=== PATIENT | female | born 1945 | race Caucasian/White ===

== ENCOUNTER 2021-11-10 08:24 | Outpatient (CLI) | payer MEDICARE | END 2021-11-10 08:25 | disposition home or self-care (01) | LOC: CT 08:24 | PROVIDERS: ATTEND Internal Medicine Gastroenterology | DX: K85.80 Other acute pancreatitis without necrosis or infection (principal); R10.13 Epigastric pain | CPT/HCPCS: 74177; 82565 ==

== ENCOUNTER 2021-11-18 09:18 | Inpatient (IN) | payer MEDICARE ==
[2021-11-18 11:02] VITALS: BMI 14.2
[2021-11-18] MEDS ORDERED: Ondansetron ODT 4 MG TAB PO PRN (12:00)
[2021-11-18] MEDS: Dextrose 5 % And 0.9 % NaCl 1,000 ML IV SCH (13:02)
[2021-11-18 13:08] LABS: Anion Gap 10 mmol/L (10-20); BUN (Urea Nitrogen) 8 mg/dL (9.8-20.1); Calc. Creatinine Clearance 40 mL/min (70-130); Carbon Dioxide 26 mmol/L (23-31); Chloride 106 mmol/L (98-107); Potassium 4.2 mmol/L (3.5-5.1); Sodium 138 mmol/L (136-145)
[2021-11-18 13:09] LABS: ALT (SGPT) 73 U/L (8-55); AST (SGOT) 71 U/L (5-34); Alkaline Phosphatase 455 U/L (40-110); Bilirubin, Total 1.2 mg/dL (0.2-1.2); Globulin 3.1 g/dL (2.4-3.5); Glucose 171 mg/dL (83-110); Protein, Total 6.1 g/dL (5.8-8.1)
[2021-11-18 13:39] LABS: #Basophils 0.1 thou/uL (0.0-0.2); #Eosinphils 0.1 thou/uL (0.0-0.7); #Lymphocytes 1.3 thou/uL (1.20-3.40); #Monocytes 0.3 thou/uL (0.11-0.59); #Neutrophils 2.8 thou/uL (1.40-6.50); %Basophils 1.9 % (0.0-1.0); %Eosinophils 2.7 % (0.0-10.0); %Lymphocytes 27.5 % (21.0-51.0); %Monocytes 6.5 % (0.0-10.0); %Neutrophils 61.4 % (42.0-75.0); Anisocytosis SLIGHT = 6-15 cells (100X) (0-5/hpf); Hemoglobin 8.2 g/dL (12.0-16.0); MDiff Complete? YES; Macrocytosis SLIGHT = 6-15 cells (100X) (0-5/hpf); Mean Corpuscular HGB CONC 30.8 g/dL (32.0-36.0); Mean Corpuscular Hemoglobin 34.2 pg (27.0-31.0); Mean Platelet Volume 7.1 fL (7.4-10.4); Ovalocytes SLIGHT = 2-5 cells (100X) (0-1/hpf); Platelet Count 434 thou/uL (130-400); Platelet Morphology Comment Appears Increased; Polychromasia SLIGHT = 2-3 cells (100X) (0-2/hpf); RBC Distribution Width 18.8 % (11.5-14.5); Red Blood Cell (RBC) Count 2.41 mill/uL (4.20-5.40); White Blood Cell (WBC) Count 4.5 thou/uL (4.8-10.8)
[2021-11-18 16:59] LABS: SARS-CoV-2 PCR by NAA Not Detected (NotDetected)
[2021-11-18] MEDS ORDERED: Promethazine 25 MG TAB PO PRN (17:23)
[2021-11-18] MEDS ORDERED: Pancrelipase DR 12,000 1 CAP PO SCH (17:30)
[2021-11-18] MEDS: traMADol HCl 50 MG TAB PO PRN ×2 (17:35→22:25)
[2021-11-18] MEDS: traZODone HCl 50 MG TAB PO SCH (20:08)
[2021-11-18] MEDS: DULoxetine 60 MG CAP PO SCH (20:08)
[2021-11-18] MEDS: Metoprolol Tartrate 25 MG TAB PO SCH (20:08)
[2021-11-18] MEDS: predniSONE 5 MG TAB PO SCH (20:08)
[2021-11-18] MEDS: Acetaminophen 325 MG TAB PO PRN (20:10)
[2021-11-18] MEDS: Ondansetron PF 4 MG/2 ML Vial IVP PRN (20:11)
[2021-11-18] MEDS: Temazepam 15 MG CAP PO PRN (22:26)
[2021-11-19] MEDS: Dextrose 5 % And 0.9 % NaCl 1,000 ML IV SCH ×2 (05:12→20:51)
[2021-11-19] MEDS: Levothyroxine Sodium 125 MCG TAB PO SCH (05:12)
[2021-11-19 07:17] LABS: Anion Gap 5 mmol/L (10-20); BUN (Urea Nitrogen) 7 mg/dL (9.8-20.1); Calc. Creatinine Clearance 40 mL/min (70-130); Calcium 8.1 mg/dL (7.8-10.44); Carbon Dioxide 28 mmol/L (23-31); Chloride 112 mmol/L (98-107); Glucose 101 mg/dL (83-110); Potassium 3.8 mmol/L (3.5-5.1); Sodium 141 mmol/L (136-145)
[2021-11-19 07:18] LABS: Hemoglobin 6.8 g/dL (12.0-16.0); Mean Corpuscular HGB CONC 31.5 g/dL (32.0-36.0); Mean Platelet Volume 6.4 fL (7.4-10.4); Platelet Count 282 thou/uL (130-400); RBC Distribution Width 18.8 % (11.5-14.5); Red Blood Cell (RBC) Count 1.95 mill/uL (4.20-5.40); White Blood Cell (WBC) Count 3.8 thou/uL (4.8-10.8)
[2021-11-19] MEDS ORDERED: Topiramate 100 MG TAB PO SCH (09:00)
[2021-11-19] MEDS: Metoprolol Tartrate 25 MG TAB PO SCH ×2 (09:06→20:50)
[2021-11-19] MEDS: Pancrelipase DR 12,000 1 CAP PO SCH ×3 (09:06→17:34)
[2021-11-19] MEDS: predniSONE 5 MG TAB PO SCH ×3 (09:06→20:53)
[2021-11-19] MEDS: Cholecalciferol 1,000 UNITS (25 MCG) TAB PO SCH (09:09)
[2021-11-19] MEDS ORDERED: Acetaminophen 325 MG TAB PO SCH (10:00)
[2021-11-19 10:01] LABS: Band 11 % (5-11); Eosinophils 4 % (0-10); Lymphocytes 58 % (21-51); MDiff Complete? YES; Macrocytosis SLIGHT = 6-15 cells (100X) (0-5/hpf); Monocytes 4 % (0-10); Myelocyte 1 % (0-0); Neutrophil 20 % (42-75); Platelet Morphology Comment Appears Adequate; Polychromasia SLIGHT = 2-3 cells (100X) (0-2/hpf)
[2021-11-19 14:41] LABS: Iron 146 ug/dL (50-170); Iron Binding Capacity, Total 145 mcg/dL (265-497)
[2021-11-19] MEDS ORDERED: GoLYTELY 4,000 ml Bottle PO SCH (16:00)
[2021-11-19 16:20] LABS: Ferritin 1563.08 ng/mL (10-291)
[2021-11-19] MEDS ORDERED: Thiamine 100 MG TAB PO SCH (16:30)
[2021-11-19 18:47] LABS: Free T4 (Free Thyroxine) 1.48 ng/dL (0.70-1.48); Thyroid Stimulating Hormone 0.0401 uIU/mL (0.35-4.94)
[2021-11-19] MEDS: Topiramate 100 MG TAB PO SCH (20:50)
[2021-11-19] MEDS: DULoxetine 60 MG CAP PO SCH (20:50)
[2021-11-19] MEDS: traZODone HCl 50 MG TAB PO SCH (22:53)
[2021-11-19] MEDS: Ondansetron PF 4 MG/2 ML Vial IVP PRN (23:00)
[2021-11-20] MEDS: Dextrose 5 % And 0.9 % NaCl 1,000 ML IV SCH (04:16)
[2021-11-20] MEDS: Metoprolol Tartrate 25 MG TAB PO SCH ×2 (06:16→20:30)
[2021-11-20] MEDS: Levothyroxine Sodium 125 MCG TAB PO SCH (06:16)
[2021-11-20] MEDS ORDERED: Fleet Enema 133 ML BOT PR SCH (07:00)
[2021-11-20] MEDS: Pancrelipase DR 12,000 1 CAP PO SCH ×4 (07:56→17:33)
[2021-11-20] MEDS: Thiamine 100 MG TAB PO SCH (07:57)
[2021-11-20] MEDS: predniSONE 5 MG TAB PO SCH ×2 (07:57→20:29)
[2021-11-20] MEDS: Cholecalciferol 1,000 UNITS (25 MCG) TAB PO SCH (07:57)
[2021-11-20 10:25] LABS: Anisocytosis SLIGHT = 6-15 cells (100X) (0-5/hpf); Band 23 % (5-11); Eosinophils 3 % (0-10); Hemoglobin 9.5 g/dL (12.0-16.0); Hypochromia SLIGHT = 6-15 cells (100X) (0-5/hpf); Lymphocytes 18 % (21-51); MDiff Complete? YES; Macrocytosis SLIGHT = 6-15 cells (100X) (0-5/hpf); Mean Corpuscular HGB CONC 31.9 g/dL (32.0-36.0); Mean Corpuscular Hemoglobin 33.6 pg (27.0-31.0); Mean Platelet Volume 6.6 fL (7.4-10.4); Metamyelocyte 1 % (0-0); Monocytes 5 % (0-10); Myelocyte 4 % (0-0); Neutrophil 35 % (42-75); Platelet Count 349 thou/uL (130-400); Platelet Morphology Comment Appears Adequate; Polychromasia SLIGHT = 2-3 cells (100X) (0-2/hpf); RBC Distribution Width 19.9 % (11.5-14.5); Reactive Lymphocytes 8 % (0-10); Red Blood Cell (RBC) Count 2.84 mill/uL (4.20-5.40); Stomatocytes SLIGHT = 2-5 cells (100X) (0-1/hpf); Tear Drops SLIGHT = 2-5 cells (100X) (0-1/hpf); White Blood Cell (WBC) Count 5.2 thou/uL (4.8-10.8)
[2021-11-20] MEDS ORDERED: Levothyroxine Sodium 50 MCG TAB PO SCH (11:15)
[2021-11-20] MEDS: traMADol HCl 50 MG TAB PO PRN ×2 (11:30→17:34)
[2021-11-20] MEDS ORDERED: PROPOFOL 200 MG/20 ML VIAL ONE (14:53)
[2021-11-20] MEDS: Topiramate 100 MG TAB PO SCH (20:29)
[2021-11-20] MEDS: DULoxetine 60 MG CAP PO SCH (20:29)
[2021-11-20] MEDS: traZODone HCl 50 MG TAB PO SCH (20:30)
[2021-11-21] MEDS: Dextrose 5 % And 0.9 % NaCl 1,000 ML IV SCH ×2 (02:55→13:56)
[2021-11-21] MEDS: Levothyroxine 175 MCG TAB PO SCH (06:22)
[2021-11-21] MEDS: Cholecalciferol 1,000 UNITS (25 MCG) TAB PO SCH (08:40)
[2021-11-21] MEDS: Pancrelipase DR 12,000 1 CAP PO SCH ×3 (08:40→16:40)
[2021-11-21] MEDS: Thiamine 100 MG TAB PO SCH (08:40)
[2021-11-21] MEDS: Metoprolol Tartrate 25 MG TAB PO SCH ×2 (08:41→21:41)
[2021-11-21] MEDS: predniSONE 5 MG TAB PO SCH ×2 (08:41→21:41)
[2021-11-21 10:37] LABS: ALT (SGPT) 48 U/L (8-55); AST (SGOT) 50 U/L (5-34); Albumin 2.2 g/dL (3.4-4.8); Alkaline Phosphatase 351 U/L (40-110); Anion Gap 7 mmol/L (10-20); BUN (Urea Nitrogen) 5 mg/dL (9.8-20.1); Bilirubin, Total 0.8 mg/dL (0.2-1.2); Calc. Creatinine Clearance 41 mL/min (70-130); Calcium 7.9 mg/dL (7.8-10.44); Carbon Dioxide 25 mmol/L (23-31); Chloride 111 mmol/L (98-107); Globulin 2.3 g/dL (2.4-3.5); Glucose 135 mg/dL (83-110); Lipase Less than 4 U/L (8-78); Potassium 3.6 mmol/L (3.5-5.1); Protein, Total 4.5 g/dL (5.8-8.1); Sodium 139 mmol/L (136-145)
[2021-11-21 11:12] LABS: Mean Corpuscular HGB CONC 31.5 g/dL (32.0-36.0); Mean Corpuscular Hemoglobin 33.7 pg (27.0-31.0); Red Blood Cell (RBC) Count 2.67 mill/uL (4.20-5.40)
[2021-11-21 11:18] LABS: Anisocytosis SLIGHT = 6-15 cells (100X) (0-5/hpf); Eosinophils 2 % (0-10); Lymphocytes 28 % (21-51); MDiff Complete? YES; Monocytes 6 % (0-10); Neutrophil 62 % (42-75); Platelet Morphology Comment PLT clumps seen-ADEQ; Polychromasia SLIGHT = 2-3 cells (100X) (0-2/hpf); White Blood Cell (WBC) Count 4.6 thou/uL (4.8-10.8)
[2021-11-21 16:33] LABS: HBSAB Concentration Less than 8.00 mIU/mL; HBSAg Index 0.25 S/CO (0-0.99); Hep B Surf AB Non-Reactive (NonReactive); Hep B Surf Ag Non-Reactive S/CO (NonReactive); Hep C IgG Ab Non-Reactive (NonReactive); Hep C Index 0.16 S/CO (0-0.79)
[2021-11-21] MEDS: Ondansetron PF 4 MG/2 ML Vial IVP PRN (18:07)
[2021-11-21] MEDS: DULoxetine 60 MG CAP PO SCH (21:40)
[2021-11-21] MEDS: traMADol HCl 50 MG TAB PO PRN (21:41)
[2021-11-21] MEDS: traZODone HCl 50 MG TAB PO SCH (21:41)
[2021-11-21] MEDS: Topiramate 100 MG TAB PO SCH (21:42)
[2021-11-22] MEDS: Dextrose 5 % And 0.9 % NaCl 1,000 ML IV SCH ×2 (05:31→23:47)
[2021-11-22] MEDS: Levothyroxine 175 MCG TAB PO SCH (05:31)
[2021-11-22] MEDS: Thiamine 100 MG TAB PO SCH (09:23)
[2021-11-22] MEDS: Cholecalciferol 1,000 UNITS (25 MCG) TAB PO SCH (09:23)
[2021-11-22] MEDS: Metoprolol Tartrate 25 MG TAB PO SCH ×2 (09:23→21:54)
[2021-11-22] MEDS: predniSONE 5 MG TAB PO SCH (09:23)
[2021-11-22] MEDS: Pancrelipase DR 12,000 1 CAP PO SCH ×3 (09:24→16:05)
[2021-11-22] MEDS: traMADol HCl 50 MG TAB PO PRN ×2 (16:07→21:52)
[2021-11-22] MEDS: Ondansetron PF 4 MG/2 ML Vial IVP PRN (18:26)
[2021-11-22] MEDS: DULoxetine 60 MG CAP PO SCH (21:54)
[2021-11-22] MEDS: Topiramate 100 MG TAB PO SCH (21:54)
[2021-11-22] MEDS: traZODone HCl 50 MG TAB PO SCH (21:54)
[2021-11-22] MEDS: Temazepam 15 MG CAP PO PRN (23:47)
[2021-11-23] MEDS: Levothyroxine 175 MCG TAB PO SCH (05:44)
[2021-11-23 06:47] LABS: ALT (SGPT) 51 U/L (8-55); AST (SGOT) 59 U/L (5-34); Albumin 2.3 g/dL (3.4-4.8); Alkaline Phosphatase 351 U/L (40-110); Anion Gap 8 mmol/L (10-20); BUN (Urea Nitrogen) 5 mg/dL (9.8-20.1); Bilirubin, Total 0.9 mg/dL (0.2-1.2); Calc. Creatinine Clearance 47 mL/min (70-130); Calcium 8.5 mg/dL (7.8-10.44); Carbon Dioxide 25 mmol/L (23-31); Chloride 110 mmol/L (98-107); Globulin 2.5 g/dL (2.4-3.5); Glucose 105 mg/dL (83-110); Potassium 3.7 mmol/L (3.5-5.1); Protein, Total 4.8 g/dL (5.8-8.1); Sodium 139 mmol/L (136-145)
[2021-11-23] MEDS: Pancrelipase DR 12,000 1 CAP PO SCH ×3 (08:27→17:02)
[2021-11-23] MEDS: Metoprolol Tartrate 25 MG TAB PO SCH ×2 (08:28→20:59)
[2021-11-23] MEDS: Cholecalciferol 1,000 UNITS (25 MCG) TAB PO SCH (08:28)
[2021-11-23] MEDS: Thiamine 100 MG TAB PO SCH (08:28)
[2021-11-23] MEDS: predniSONE 5 MG TAB PO SCH (08:28)
[2021-11-23] MEDS: Dextrose 5 % And 0.9 % NaCl 1,000 ML IV SCH ×2 (08:29→10:15)
[2021-11-23] MEDS: Ondansetron PF 4 MG/2 ML Vial IVP PRN (19:27)
[2021-11-23] MEDS: Topiramate 100 MG TAB PO SCH (20:59)
[2021-11-23] MEDS: traZODone HCl 50 MG TAB PO SCH (20:59)
[2021-11-23] MEDS: Temazepam 15 MG CAP PO PRN (20:59)
[2021-11-23] MEDS: DULoxetine 60 MG CAP PO SCH (20:59)
[2021-11-23] MEDS: traMADol HCl 50 MG TAB PO PRN (20:59)
[2021-11-23] MEDS ORDERED: Dicyclomine 20 MG TAB PO SCH (22:00)
[2021-11-24] MEDS: Ondansetron PF 4 MG/2 ML Vial IVP PRN ×2 (03:37→17:59)
[2021-11-24] MEDS: traMADol HCl 50 MG TAB PO PRN (03:37)
[2021-11-24] MEDS: Acetaminophen 325 MG TAB PO PRN (03:38)
[2021-11-24] MEDS: Dextrose 5 % And 0.9 % NaCl 1,000 ML IV SCH ×2 (03:42→23:56)
[2021-11-24] MEDS: Levothyroxine 175 MCG TAB PO SCH (05:52)
[2021-11-24] MEDS: Cholecalciferol 1,000 UNITS (25 MCG) TAB PO SCH (08:42)
[2021-11-24] MEDS: Pancrelipase DR 12,000 1 CAP PO SCH ×3 (08:42→17:56)
[2021-11-24] MEDS: Thiamine 100 MG TAB PO SCH (08:43)
[2021-11-24] MEDS: Multivit, Therapeutic 1 TAB PO SCH (08:43)
[2021-11-24] MEDS: Dicyclomine 20 MG TAB PO SCH ×4 (08:43→20:48)
[2021-11-24] MEDS: Metoprolol Tartrate 25 MG TAB PO SCH ×2 (08:43→20:48)
[2021-11-24] MEDS: predniSONE 5 MG TAB PO SCH (08:43)
[2021-11-24] MEDS ORDERED: Megestrol Acetate 40 MG TAB PO SCH (11:15)
[2021-11-24] MEDS: Megestrol Acetate 40 MG TAB PO SCH (20:48)
[2021-11-24] MEDS: traZODone HCl 50 MG TAB PO SCH (20:48)
[2021-11-24] MEDS: DULoxetine 60 MG CAP PO SCH (20:48)
[2021-11-24] MEDS: Topiramate 100 MG TAB PO SCH (20:48)
[2021-11-24 23:42] LABS: SARS-CoV-2 PCR by NAA Not Detected (NotDetected)
[2021-11-25] MEDS: Levothyroxine 175 MCG TAB PO SCH (05:26)
[2021-11-25] MEDS: traMADol HCl 50 MG TAB PO PRN (05:33)
[2021-11-25] MEDS: Acetaminophen 325 MG TAB PO PRN (05:33)
[2021-11-25 06:30] LABS: Hemoglobin 8.9 g/dL (12.0-16.0); Platelet Count 312 thou/uL (130-400)
[2021-11-25] MEDS ORDERED: Cosyntropin 250 MCG VIAL SLOW IVP SCH (08:30)
[2021-11-25] MEDS: Pancrelipase DR 12,000 1 CAP PO SCH ×2 (08:57→12:30)
[2021-11-25] MEDS: Cholecalciferol 1,000 UNITS (25 MCG) TAB PO SCH (08:58)
[2021-11-25] MEDS: predniSONE 5 MG TAB PO SCH (08:58)
[2021-11-25] MEDS: Multivit, Therapeutic 1 TAB PO SCH (08:58)
[2021-11-25] MEDS: Thiamine 100 MG TAB PO SCH (08:58)
[2021-11-25] MEDS: Dicyclomine 20 MG TAB PO SCH ×2 (08:59→12:30)
[2021-11-25] MEDS: Megestrol Acetate 40 MG TAB PO SCH (08:59)
[2021-11-25] MEDS: Metoprolol Tartrate 25 MG TAB PO SCH (08:59)
[2021-11-25 09:01] VITALS: BP 133/76; TEMP 98.2
[2021-11-25 12:25] LABS: EliA Vaculitis New Method **** NEW METHOD ****; Mitochondrial Ab 1.3 U/mL (<4 Negative)
[2021-11-26 23:37] LABS: Alkaline Phosphastase Total 431 IU/L (44-121); Bone 19 % (14-68); Intestinal 4 % (0-18); Liver 77 % (18-85)
== END 2021-11-25 14:30 | disposition home health service (06) | DRG 640 ==
LOC: T4-A 10:11
PROVIDERS: ADMIT Family Medicine; ATTEND Family Medicine
PROC: 30233N1 Transfusion of Nonautologous Red Blood Cells into Peripheral Vein, Percutaneous Approach (ICD-10-PCS; 2021-11-19)
PROC: 0DBA8ZX Excision of Jejunum, Via Natural or Artificial Opening Endoscopic, Diagnostic (ICD-10-PCS; 2021-11-20)
PROC: 0DBN8ZZ Excision of Sigmoid Colon, Via Natural or Artificial Opening Endoscopic (ICD-10-PCS; 2021-11-20)
PROC: 3E0G76Z Introduction of Nutritional Substance into Upper GI, Via Natural or Artificial Opening (ICD-10-PCS; principal; 2021-11-21)
DX: E43 Unspecified severe protein-calorie malnutrition (principal); K83.1 Obstruction of bile duct; Z20.822 Contact with and (suspected) exposure to COVID-19; Z68.1 Body mass index [BMI] 19.9 or less, adult; R64 Cachexia; K86.1 Other chronic pancreatitis; K86.89 Other specified diseases of pancreas; K63.5 Polyp of colon; K57.30 Diverticulosis of large intestine without perforation or abscess without bleeding; I10 Essential (primary) hypertension; E03.9 Hypothyroidism, unspecified; R29.6 Repeated falls; Z96.643 Presence of artificial hip joint, bilateral; R62.7 Adult failure to thrive; D53.9 Nutritional anemia, unspecified; Z90.49 Acquired absence of other specified parts of digestive tract; Z88.6 Allergy status to analgesic agent; Z88.5 Allergy status to narcotic agent; Z88.8 Allergy status to other drugs, medicaments and biological substances; Z79.899 Other long term (current) drug therapy; Z91.81 History of falling; Z90.710 Acquired absence of both cervix and uterus; Z98.890 Other specified postprocedural states; Z82.0 Family history of epilepsy and other diseases of the nervous system; Z90.410 Acquired total absence of pancreas
CPT/HCPCS: 36415; 36430; 70450; 72170; 74181; 80048; 80053; 81256; 82248; 82306; 82607; 82728; 82746; 82787; 82977; 83516; 83540; 83550; 83615; 83690; 84075; 84100; 84165; 84439; 84443; 84446; 84550; 84590; 85014; 85018; 85025; 85046; 85049; 85610; 86015; 86706; 86709; 86803; 86850; 86900; 86901; 87340; 88305; G0306; J2405; J2704; J7042; J7512; P9016; Q0162; Q0169; S0179; U0003; U0005

== ENCOUNTER 2021-12-09 19:55 | Emergency (ER) | payer MEDICARE ==
[2021-12-09 21:02] LABS: Hemoglobin 9.2 g/dL (12.0-16.0); Mean Corpuscular HGB CONC 32.1 g/dL (32.0-36.0); Mean Corpuscular Hemoglobin 34.4 pg (27.0-31.0); Mean Platelet Volume 6.1 fL (7.4-10.4); Platelet Count 476 thou/uL (130-400); RBC Distribution Width 17.9 % (11.5-14.5); Red Blood Cell (RBC) Count 2.68 mill/uL (4.20-5.40); White Blood Cell (WBC) Count 7.7 thou/uL (4.8-10.8)
[2021-12-09 21:19] LABS: ALT (SGPT) 34 U/L (8-55); AST (SGOT) 42 U/L (5-34); Albumin 2.6 g/dL (3.4-4.8); Alkaline Phosphatase 417 U/L (40-110); Anion Gap 10 mmol/L (10-20); BUN (Urea Nitrogen) 13 mg/dL (9.8-20.1); Bilirubin, Total 0.8 mg/dL (0.2-1.2); Calc. Creatinine Clearance 0 mL/min (70-130); Calcium 8.6 mg/dL (7.8-10.44); Carbon Dioxide 24 mmol/L (23-31); Chloride 104 mmol/L (98-107); Globulin 3.7 g/dL (2.4-3.5); Glucose 116 mg/dL (83-110); Potassium 3.8 mmol/L (3.5-5.1); Protein, Total 6.3 g/dL (5.8-8.1); Sodium 134 mmol/L (136-145)
[2021-12-09 21:23] LABS: Troponin I Less than 0.010 ng/mL (< 0.028)
[2021-12-09 21:38] LABS: Band 12 % (5-11); Eosinophils 1 % (0-10); Hypochromia SLIGHT = 6-15 cells (100X) (0-5/hpf); Lymphocytes 26 % (21-51); MDiff Complete? YES; Macrocytosis SLIGHT = 6-15 cells (100X) (0-5/hpf); Monocytes 12 % (0-10); Neutrophil 48 % (42-75); Platelet Morphology Comment Appears Increased; Reactive Lymphocytes 1 % (0-10)
[2021-12-09] MEDS ORDERED: cefTRIAXone\\ROCEPHIN 1 GM VIAL ONE (22:03)
[2021-12-09] MEDS ORDERED: Ketorolac Tromethamine 30 MG/ML VIAL ONE (22:18)
== END 2021-12-09 22:35 | disposition home or self-care (01) ==
LOC: ERS 19:55
DX: J18.9 Pneumonia, unspecified organism (principal); S22.42XD Multiple fractures of ribs, left side, subsequent encounter for fracture with routine healing; E03.9 Hypothyroidism, unspecified; Z79.899 Other long term (current) drug therapy
CPT/HCPCS: 36415; 71045; 80053; 83605; 84484; 85025; 87040; 93005; 96365; 96375; J0696; J1885

== ENCOUNTER 2022-01-14 10:13 | Day surgery (SDC) | payer MEDICARE ==
[2022-01-14] MEDS ORDERED: diphenhydrAMINE 25 MG CAP ONE (11:05)
[2022-01-14] MEDS ORDERED: Acetaminophen 500 MG TAB ONE (11:05)
[2022-01-14] MEDS ORDERED: Sodium Chloride 0.9% 1,000 ML IV SCH (11:30)
[2022-01-14 17:01] VITALS: BP 127/59; TEMP 98.8
== END 2022-01-14 17:01 | disposition home or self-care (01) ==
LOC: ONC/OP 10:13
PROVIDERS: ATTEND Internal Medicine Hematology & Oncology
PROC: 30233N1 Transfusion of Nonautologous Red Blood Cells into Peripheral Vein, Percutaneous Approach (ICD-10-PCS; principal; 2022-01-14)
DX: D64.9 Anemia, unspecified (principal); D69.6 Thrombocytopenia, unspecified; Z88.5 Allergy status to narcotic agent; Z88.6 Allergy status to analgesic agent; Z88.8 Allergy status to other drugs, medicaments and biological substances; D51.3 Other dietary vitamin B12 deficiency anemia; D72.818 Other decreased white blood cell count
CPT/HCPCS: 36415; 36430; 82607; 82728; 82746; 85025; 86850; 86900; 86901; 96360; P9016

== ENCOUNTER 2022-02-15 16:46 | Inpatient (IN) | payer MEDICARE ==
[2022-02-15 18:23] LABS: #Basophils 0.1 thou/uL (0.0-0.2); #Eosinphils 0.3 thou/uL (0.0-0.7); #Lymphocytes 2.2 thou/uL (1.20-3.40); #Monocytes 0.6 thou/uL (0.11-0.59); #Neutrophils 3.1 thou/uL (1.40-6.50); %Eosinophils 4.9 % (0.0-10.0); %Lymphocytes 35.1 % (21.0-51.0); %Monocytes 9.1 % (0.0-10.0); Hemoglobin 7.5 g/dL (12.0-16.0); Mean Corpuscular HGB CONC 32.2 g/dL (32.0-36.0); Mean Corpuscular Hemoglobin 33.6 pg (27.0-31.0); Mean Platelet Volume 7.2 fL (7.4-10.4); Platelet Count 453 thou/uL (130-400); RBC Distribution Width 19.2 % (11.5-14.5); Red Blood Cell (RBC) Count 2.23 mill/uL (4.20-5.40); White Blood Cell (WBC) Count 6.3 thou/uL (4.8-10.8)
[2022-02-15 18:39] LABS: Phosphorus 2.3 mg/dL (2.3-4.7)
[2022-02-15 18:42] LABS: ALT (SGPT) 91 U/L (8-55); AST (SGOT) 120 U/L (5-34); Albumin 2.4 g/dL (3.4-4.8); Alkaline Phosphatase 589 U/L (40-110); Anion Gap 9 mmol/L (10-20); BUN (Urea Nitrogen) 14 mg/dL (9.8-20.1); Bilirubin, Total 1.1 mg/dL (0.2-1.2); Calc. Creatinine Clearance 0 mL/min (70-130); Calcium 8.7 mg/dL (7.8-10.44); Carbon Dioxide 26 mmol/L (23-31); Chloride 103 mmol/L (98-107); Estimated GFR 72; Globulin 3.7 g/dL (2.4-3.5); Glucose 100 mg/dL (83-110); Magnesium 1.8 mg/dL (1.6-2.6); Protein, Total 6.1 g/dL (5.8-8.1); Sodium 134 mmol/L (136-145)
[2022-02-15] MEDS ORDERED: Ondansetron PF 4 MG/2 ML Vial IVP PRN (19:34)
[2022-02-15] MEDS ORDERED: Promethazine 25 MG TAB PO PRN (19:55)
[2022-02-15 20:41] VITALS: BMI 12.5
[2022-02-15] MEDS ORDERED: Magnesium 2 GM/50 ML(in water) 2 GM in Premix Bag 1 BAG IVPB SCH (21:00)
[2022-02-15] MEDS ORDERED: PHOS-NAK 1 PKT PACK PO SCH (21:00)
[2022-02-15] MEDS: traZODone HCl 50 MG TAB PO SCH (21:04)
[2022-02-15] MEDS: Lactated Ringer's 1,000 ML IV SCH (22:44)
[2022-02-16 01:13] LABS: SARS-CoV-2 NAA Rapid Test Not Detected (NotDetected)
[2022-02-16] MEDS ORDERED: Levothyroxine Sodium 125 MCG TAB PO SCH (06:00)
[2022-02-16 06:23] LABS: Band 5 % (5-11); Eosinophils 3 % (0-10); Hemoglobin 7.1 g/dL (12.0-16.0); Hypochromia SLIGHT = 6-15 cells (100X) (0-5/hpf); Lymphocytes 31 % (21-51); MDiff Complete? YES; Macrocytosis SLIGHT = 6-15 cells (100X) (0-5/hpf); Mean Corpuscular HGB CONC 32.6 g/dL (32.0-36.0); Mean Corpuscular Hemoglobin 34.2 pg (27.0-31.0); Mean Platelet Volume 7.2 fL (7.4-10.4); Monocytes 7 % (0-10); Neutrophil 54 % (42-75); Platelet Count 414 thou/uL (130-400); Platelet Morphology Comment Appears Increased; RBC Distribution Width 19.4 % (11.5-14.5); Red Blood Cell (RBC) Count 2.08 mill/uL (4.20-5.40); White Blood Cell (WBC) Count 5.2 thou/uL (4.8-10.8)
[2022-02-16 07:11] LABS: ALT (SGPT) 82 U/L (8-55); AST (SGOT) 103 U/L (5-34); Albumin 2.3 g/dL (3.4-4.8); Alkaline Phosphatase 519 U/L (40-110); Anion Gap 12 mmol/L (10-20); BUN (Urea Nitrogen) 13 mg/dL (9.8-20.1); Calc. Creatinine Clearance 32 mL/min (70-130); Calcium 8.5 mg/dL (7.8-10.44); Carbon Dioxide 24 mmol/L (23-31); Chloride 103 mmol/L (98-107); Estimated GFR 77; Globulin 3.3 g/dL (2.4-3.5); Glucose 87 mg/dL (83-110); Magnesium 2.3 mg/dL (1.6-2.6); Phosphorus 3.1 mg/dL (2.3-4.7); Potassium 3.7 mmol/L (3.5-5.1); Protein, Total 5.6 g/dL (5.8-8.1); Sodium 135 mmol/L (136-145)
[2022-02-16] MEDS: Levothyroxine 175 MCG TAB PO SCH (07:13)
[2022-02-16] MEDS: Pancrelipase DR 12,000 1 CAP PO SCH ×3 (08:04→17:43)
[2022-02-16] MEDS: Lactated Ringer's 1,000 ML IV SCH (10:54)
[2022-02-16] MEDS ORDERED: Sodium Chloride 0.9% 0 ML ONE (12:43)
[2022-02-16] MEDS ORDERED: CEFAZOLIN 1 GM VIAL ONE ×2 (12:43→13:36)
[2022-02-16] MEDS ORDERED: EPINEPHrine 1 MG/ML AMP ONE (13:27)
[2022-02-16] MEDS ORDERED: Bupivacaine PF 0.5% 30 ML VIAL ONE (13:27)
[2022-02-16] MEDS ORDERED: Sodium Chloride 0.9% 100 ML ONE (13:36)
[2022-02-16] MEDS ORDERED: CEFAZOLIN 2 GM VIAL ONE (13:36)
[2022-02-16] MEDS ORDERED: Cyanocobalamin 1000 MCG/ML VIAL IM SCH (13:45)
[2022-02-16] MEDS ORDERED: Propofol 500 MG/50 ML VIAL ONE (13:47)
[2022-02-16] MEDS ORDERED: Bupivacaine/Epinephrine 0.25% 30 ML VIAL ONE (13:50)
[2022-02-16] MEDS: Cholecalciferol 1,000 UNITS (25 MCG) TAB PO SCH (14:07)
[2022-02-16] MEDS: DULoxetine 60 MG CAP PO SCH (14:07)
[2022-02-16] MEDS: Thiamine 100 MG TAB PO SCH (14:08)
[2022-02-16] MEDS: Topiramate 100 MG TAB PO SCH (14:08)
[2022-02-16] MEDS ORDERED: PRE FILLED SC SCH (14:15)
[2022-02-16] MEDS ORDERED: FOLIC ACID SC SCH (14:15)
[2022-02-16] MEDS ORDERED: Ondansetron HCl/PF 4 MG/2 ML Vial IVP PRN (14:18)
[2022-02-16] MEDS ORDERED: PROPOFOL 200 MG/20 ML VIAL ONE (14:34)
[2022-02-16] MEDS ORDERED: Dextrose 10% in Water 1,000 ML IV SCH (17:15)
[2022-02-16] MEDS: Dextrose 10% in Water 500 ML IV SCH (17:43)
[2022-02-16 18:48] LABS: ALT (SGPT) 71 U/L (8-55); AST (SGOT) 92 U/L (5-34); Albumin 2.4 g/dL (3.4-4.8); Alkaline Phosphatase 519 U/L (40-110); Anion Gap 12 mmol/L (10-20); BUN (Urea Nitrogen) 12 mg/dL (9.8-20.1); Bilirubin, Total 1.1 mg/dL (0.2-1.2); Calc. Creatinine Clearance 32 mL/min (70-130); Carbon Dioxide 24 mmol/L (23-31); Chloride 102 mmol/L (98-107); Estimated GFR 76; Globulin 3.3 g/dL (2.4-3.5); Glucose 124 mg/dL (83-110); Magnesium 2.1 mg/dL (1.6-2.6); Phosphorus 2.5 mg/dL (2.3-4.7); Potassium 3.2 mmol/L (3.5-5.1); Protein, Total 5.7 g/dL (5.8-8.1); Sodium 135 mmol/L (136-145)
[2022-02-16] MEDS: traZODone HCl 50 MG TAB PO SCH (20:52)
[2022-02-17 00:28] LABS: ALT (SGPT) 50 U/L (8-55); AST (SGOT) 82 U/L (5-34); Albumin 2.2 g/dL (3.4-4.8); Alkaline Phosphatase 484 U/L (40-110); Anion Gap 11 mmol/L (10-20); BUN (Urea Nitrogen) 11 mg/dL (9.8-20.1); Calc. Creatinine Clearance 33 mL/min (70-130); Calcium 7.9 mg/dL (7.8-10.44); Carbon Dioxide 23 mmol/L (23-31); Chloride 104 mmol/L (98-107); Estimated GFR 80; Globulin 3.2 g/dL (2.4-3.5); Glucose 102 mg/dL (83-110); Phosphorus 2.5 mg/dL (2.3-4.7); Potassium 3.3 mmol/L (3.5-5.1); Protein, Total 5.4 g/dL (5.8-8.1); Sodium 135 mmol/L (136-145)
[2022-02-17] MEDS: Potassium Chloride 20 MEQ in Premix Bag 1 BAG IVPB SCH ×2 (00:43→02:17)
[2022-02-17] MEDS: Lactated Ringer's 1,000 ML IV SCH ×2 (02:17→08:20)
[2022-02-17] MEDS: Levothyroxine 175 MCG TAB PO SCH (06:32)
[2022-02-17 07:05] LABS: Hemoglobin 7.3 g/dL (12.0-16.0); Mean Corpuscular HGB CONC 32.6 g/dL (32.0-36.0); Mean Platelet Volume 6.9 fL (7.4-10.4); Platelet Count 484 thou/uL (130-400); RBC Distribution Width 19.9 % (11.5-14.5); Red Blood Cell (RBC) Count 2.16 mill/uL (4.20-5.40); White Blood Cell (WBC) Count 5.6 thou/uL (4.8-10.8)
[2022-02-17 07:15] LABS: ALT (SGPT) 39 U/L (8-55); AST (SGOT) 80 U/L (5-34); Albumin 2.2 g/dL (3.4-4.8); Alkaline Phosphatase 498 U/L (40-110); Anion Gap 8 mmol/L (10-20); BUN (Urea Nitrogen) 9 mg/dL (9.8-20.1); Bilirubin, Total 1.2 mg/dL (0.2-1.2); Calc. Creatinine Clearance 32 mL/min (70-130); Calcium 7.9 mg/dL (7.8-10.44); Carbon Dioxide 25 mmol/L (23-31); Chloride 106 mmol/L (98-107); Estimated GFR 78; Globulin 3.3 g/dL (2.4-3.5); Glucose 100 mg/dL (83-110); Magnesium 2.1 mg/dL (1.6-2.6); Phosphorus 2.2 mg/dL (2.3-4.7); Potassium 4.4 mmol/L (3.5-5.1); Protein, Total 5.5 g/dL (5.8-8.1); Sodium 135 mmol/L (136-145)
[2022-02-17] MEDS: Pancrelipase DR 12,000 1 CAP PO SCH ×3 (08:00→17:10)
[2022-02-17 08:07] LABS: Band 21 % (5-11); Eosinophils 2 % (0-10); Hypochromia SLIGHT = 6-15 cells (100X) (0-5/hpf); Lymphocytes 29 % (21-51); MDiff Complete? YES; Metamyelocyte 1 % (0-0); Monocytes 6 % (0-10); Myelocyte 1 % (0-0); Neutrophil 38 % (42-75); Platelet Morphology Comment Appears Increased; Polychromasia MODERATE = 3-4 cells (100X) (0-2/hpf)
[2022-02-17] MEDS: Topiramate 100 MG TAB PO SCH (09:05)
[2022-02-17] MEDS: Thiamine 100 MG TAB PO SCH (09:05)
[2022-02-17] MEDS: DULoxetine 60 MG CAP PO SCH (09:05)
[2022-02-17] MEDS: Cholecalciferol 1,000 UNITS (25 MCG) TAB PO SCH (09:05)
[2022-02-17] MEDS ORDERED: Potassium Phosphate 22 MMOL in Sodium Chloride 0.9% 250 ML 250 ML IVPB SCH (10:15)
[2022-02-17] MEDS ORDERED: Electrolyte Replacement Protocol 1 EACH FS SCH (10:17)
[2022-02-17] MEDS ORDERED: Promethazine 25 MG TAB PO PRN (13:15)
[2022-02-17] MEDS ORDERED: [UNRECOGNIZED DRUG - OTHER] IV SCH (14:00)
[2022-02-17] MEDS ORDERED: SODIUM CHLORIDE IV SCH (14:00)
[2022-02-17] MEDS ORDERED: POTASSIUM CHLORIDE IV SCH (14:00)
[2022-02-17] MEDS ORDERED: SODIUM ACETATE IV SCH (14:00)
[2022-02-17 17:10] LABS: ALT (SGPT) 34 U/L (8-55); AST (SGOT) 84 U/L (5-34); Albumin 2.3 g/dL (3.4-4.8); Alkaline Phosphatase 524 U/L (40-110); Anion Gap 12 mmol/L (10-20); BUN (Urea Nitrogen) 9 mg/dL (9.8-20.1); Bilirubin, Total 1.1 mg/dL (0.2-1.2); Calc. Creatinine Clearance 32 mL/min (70-130); Calcium 7.8 mg/dL (7.8-10.44); Carbon Dioxide 23 mmol/L (23-31); Chloride 103 mmol/L (98-107); Estimated GFR 77; Globulin 3.3 g/dL (2.4-3.5); Glucose 118 mg/dL (83-110); Magnesium 1.9 mg/dL (1.6-2.6); Phosphorus 4.9 mg/dL (2.3-4.7); Potassium 4.9 mmol/L (3.5-5.1); Protein, Total 5.6 g/dL (5.8-8.1); Sodium 133 mmol/L (136-145)
[2022-02-17] MEDS: Dextrose 10% in Water 500 ML IV SCH (18:33)
[2022-02-17] MEDS: traZODone HCl 50 MG TAB PO SCH (20:45)
[2022-02-17 21:14] LABS: Glucose 164 mg/dL (83-110)
[2022-02-17] MEDS ORDERED: Magnesium 2 GM/50 ML(in water) 2 GM in Premix Bag 1 BAG IVPB SCH (23:59)
[2022-02-18 05:01] LABS: Phosphorus 2.8 mg/dL (2.3-4.7)
[2022-02-18 05:09] LABS: ALT (SGPT) 29 U/L (8-55); AST (SGOT) 67 U/L (5-34); Albumin 2.1 g/dL (3.4-4.8); Alkaline Phosphatase 465 U/L (40-110); Anion Gap 10 mmol/L (10-20); BUN (Urea Nitrogen) 11 mg/dL (9.8-20.1); Calc. Creatinine Clearance 35 mL/min (70-130); Calcium 7.7 mg/dL (7.8-10.44); Carbon Dioxide 25 mmol/L (23-31); Chloride 103 mmol/L (98-107); Estimated GFR 86; Globulin 3.2 g/dL (2.4-3.5); Glucose 132 mg/dL (83-110); Magnesium 3.2 mg/dL (1.6-2.6); Potassium 4.2 mmol/L (3.5-5.1); Protein, Total 5.3 g/dL (5.8-8.1); Sodium 134 mmol/L (136-145)
[2022-02-18 05:49] LABS: #Basophils 0.1 thou/uL (0.0-0.2); #Eosinphils 0.2 thou/uL (0.0-0.7); #Lymphocytes 1.8 thou/uL (1.20-3.40); #Monocytes 0.4 thou/uL (0.11-0.59); #Neutrophils 1.7 thou/uL (1.40-6.50); %Basophils 2.5 % (0.0-1.0); %Eosinophils 5.8 % (0.0-10.0); %Lymphocytes 42.6 % (21.0-51.0); %Monocytes 8.9 % (0.0-10.0); %Neutrophils 40.2 % (42.0-75.0); Mean Corpuscular HGB CONC 33.3 g/dL (32.0-36.0); Mean Corpuscular Hemoglobin 35.6 pg (27.0-31.0); Mean Platelet Volume 7.2 fL (7.4-10.4); Platelet Count 347 thou/uL (130-400); Red Blood Cell (RBC) Count 2.25 mill/uL (4.20-5.40); White Blood Cell (WBC) Count 4.1 thou/uL (4.8-10.8)
[2022-02-18] MEDS: Levothyroxine 175 MCG TAB PO SCH (06:46)
[2022-02-18] MEDS: Cholecalciferol 1,000 UNITS (25 MCG) TAB PO SCH (09:30)
[2022-02-18] MEDS: Thiamine 100 MG TAB PO SCH (09:51)
[2022-02-18] MEDS: Topiramate 100 MG TAB PO SCH (09:51)
[2022-02-18] MEDS: Pancrelipase DR 12,000 1 CAP PO SCH ×3 (09:51→16:41)
[2022-02-18] MEDS: DULoxetine 60 MG CAP PO SCH (09:52)
[2022-02-18] MEDS: Lactated Ringer's 1,000 ML IV SCH (10:02)
[2022-02-18] MEDS ORDERED: [UNRECOGNIZED DRUG - OTHER] IV SCH (14:00)
[2022-02-18] MEDS ORDERED: MULTIVITAMINS IV SCH (14:00)
[2022-02-18] MEDS ORDERED: POTASSIUM CHLORIDE IV SCH ×2 (14:00)
[2022-02-18] MEDS ORDERED: SODIUM CHLORIDE IV SCH ×2 (14:00)
[2022-02-18] MEDS ORDERED: [UNRECOGNIZED DRUG - OTHER] IV SCH (14:00)
[2022-02-18] MEDS ORDERED: SODIUM ACETATE IV SCH (14:00)
[2022-02-18] MEDS ORDERED: Acetaminophen 325 MG TAB PO PRN (21:56)
[2022-02-18] MEDS ORDERED: Acetaminophen 325 MG TAB PO SCH (22:00)
[2022-02-18] MEDS: traZODone HCl 50 MG TAB PO SCH (22:19)
[2022-02-19] MEDS: Levothyroxine 175 MCG TAB PO SCH (06:28)
[2022-02-19 07:14] LABS: Anion Gap 9 mmol/L (10-20); BUN (Urea Nitrogen) 15 mg/dL (9.8-20.1); Calc. Creatinine Clearance 38 mL/min (70-130); Calcium 7.8 mg/dL (7.8-10.44); Carbon Dioxide 25 mmol/L (23-31); Chloride 104 mmol/L (98-107); Estimated GFR 91; Glucose 148 mg/dL (83-110); Magnesium 2.1 mg/dL (1.6-2.6); Phosphorus 2.2 mg/dL (2.3-4.7); Potassium 4.6 mmol/L (3.5-5.1); Sodium 133 mmol/L (136-145)
[2022-02-19] MEDS: DULoxetine 60 MG CAP PO SCH (09:20)
[2022-02-19] MEDS: Thiamine 100 MG TAB PO SCH (09:20)
[2022-02-19] MEDS: Pancrelipase DR 12,000 1 CAP PO SCH ×3 (09:20→17:00)
[2022-02-19] MEDS: Cholecalciferol 1,000 UNITS (25 MCG) TAB PO SCH (09:20)
[2022-02-19] MEDS: Topiramate 100 MG TAB PO SCH (09:21)
[2022-02-19 09:43] LABS: Band 15 % (5-11); Eosinophils 5 % (0-10); Hemoglobin 6.7 g/dL (12.0-16.0); Hypochromia SLIGHT = 6-15 cells (100X) (0-5/hpf); Lymphocytes 29 % (21-51); MDiff Complete? YES; Mean Corpuscular HGB CONC 32.8 g/dL (32.0-36.0); Mean Corpuscular Hemoglobin 34.7 pg (27.0-31.0); Mean Platelet Volume 6.8 fL (7.4-10.4); Monocytes 9 % (0-10); Myelocyte 2 % (0-0); Neutrophil 37 % (42-75); Platelet Count 357 thou/uL (130-400); Platelet Morphology Comment Appears Adequate; Polychromasia SLIGHT = 2-3 cells (100X) (0-2/hpf); RBC Distribution Width 20.1 % (11.5-14.5); Red Blood Cell (RBC) Count 1.93 mill/uL (4.20-5.40); White Blood Cell (WBC) Count 5.7 thou/uL (4.8-10.8)
[2022-02-19] MEDS ORDERED: PHOS-NAK 1 PKT PACK PO SCH (12:15)
[2022-02-19] MEDS ORDERED: SODIUM CHLORIDE IV SCH ×2 (14:00)
[2022-02-19] MEDS ORDERED: TRACE ELEMENT IV SCH (14:00)
[2022-02-19] MEDS ORDERED: POTASSIUM CHLORIDE IV SCH (14:00)
[2022-02-19] MEDS ORDERED: [UNRECOGNIZED DRUG - OTHER] IV SCH (14:00)
[2022-02-19] MEDS ORDERED: [UNRECOGNIZED DRUG - OTHER] IV SCH (14:00)
[2022-02-19] MEDS ORDERED: MULTIVITAMINS IV SCH ×2 (14:00)
[2022-02-19 17:22] LABS: Hemoglobin 8.3 g/dL (12.0-16.0)
[2022-02-19] MEDS: traZODone HCl 50 MG TAB PO SCH (21:51)
[2022-02-20] MEDS: Levothyroxine 175 MCG TAB PO SCH (06:41)
[2022-02-20] MEDS ORDERED: Polyethylene Glycol 3350 17 GM Packet PO PRN (07:21)
[2022-02-20 08:12] LABS: ALT (SGPT) 52 U/L (8-55); AST (SGOT) 100 U/L (5-34); Albumin 2.3 g/dL (3.4-4.8); Alkaline Phosphatase 374 U/L (40-110); Anion Gap 8 mmol/L (10-20); BUN (Urea Nitrogen) 21 mg/dL (9.8-20.1); Bilirubin, Total 1.2 mg/dL (0.2-1.2); Calc. Creatinine Clearance 38 mL/min (70-130); Calcium 8.4 mg/dL (7.8-10.44); Carbon Dioxide 23 mmol/L (23-31); Chloride 104 mmol/L (98-107); Estimated GFR 91; Globulin 3.2 g/dL (2.4-3.5); Glucose 210 mg/dL (83-110); Phosphorus 2.7 mg/dL (2.3-4.7); Potassium 4.4 mmol/L (3.5-5.1); Protein, Total 5.5 g/dL (5.8-8.1); Sodium 131 mmol/L (136-145)
[2022-02-20 08:13] LABS: Anisocytosis SLIGHT = 6-15 cells (100X) (0-5/hpf); Band 32 % (5-11); Basophilic Stippling SLIGHT = 1-2 cells (100X) (None Seen); Eosinophils 1 % (0-10); Hemoglobin 6.9 g/dL (12.0-16.0); Lymphocytes 15 % (21-51); MDiff Complete? YES; Macrocytosis SLIGHT = 6-15 cells (100X) (0-5/hpf); Mean Corpuscular HGB CONC 32.9 g/dL (32.0-36.0); Mean Corpuscular Hemoglobin 35.4 pg (27.0-31.0); Mean Platelet Volume 7.5 fL (7.4-10.4); Metamyelocyte 1 % (0-0); Monocytes 6 % (0-10); Myelocyte 3 % (0-0); Neutrophil 40 % (42-75); Platelet Count 371 thou/uL (130-400); Platelet Morphology Comment Appears Adequate; Polychromasia SLIGHT = 2-3 cells (100X) (0-2/hpf); RBC Distribution Width 20.3 % (11.5-14.5); Reactive Lymphocytes 1 % (0-10); Red Blood Cell (RBC) Count 1.95 mill/uL (4.20-5.40); Schistocytes SLIGHT = 2-5 cells (100X) (0-1/hpf); Target Cells SLIGHT = 2-5 cells (100X) (0-1/hpf); White Blood Cell (WBC) Count 9.5 thou/uL (4.8-10.8)
[2022-02-20] MEDS: DULoxetine 60 MG CAP PO SCH (09:01)
[2022-02-20] MEDS: Pancrelipase DR 12,000 1 CAP PO SCH ×3 (09:01→16:08)
[2022-02-20] MEDS: Topiramate 100 MG TAB PO SCH (09:01)
[2022-02-20] MEDS: Cholecalciferol 1,000 UNITS (25 MCG) TAB PO SCH (09:01)
[2022-02-20] MEDS: Thiamine 100 MG TAB PO SCH (09:01)
[2022-02-20] MEDS: Fioricet 325/50/40 mg Tablet PO PRN (13:01)
[2022-02-20] MEDS: MULTIVITAMINS IV SCH (15:44)
[2022-02-20] MEDS: SODIUM CHLORIDE IV SCH (15:44)
[2022-02-20] MEDS: [UNRECOGNIZED DRUG - OTHER] IV SCH (15:44)
[2022-02-20] MEDS: TRACE ELEMENT IV SCH (15:44)
[2022-02-20 18:39] LABS: Hemoglobin 9.4 g/dL (12.0-16.0)
[2022-02-20] MEDS: traZODone HCl 50 MG TAB PO SCH (21:39)
[2022-02-21] MEDS: Levothyroxine 175 MCG TAB PO SCH (06:50)
[2022-02-21] MEDS: Cholecalciferol 1,000 UNITS (25 MCG) TAB PO SCH (08:18)
[2022-02-21] MEDS: Pancrelipase DR 12,000 1 CAP PO SCH ×3 (08:19→16:49)
[2022-02-21] MEDS: Topiramate 100 MG TAB PO SCH (08:20)
[2022-02-21] MEDS: Thiamine 100 MG TAB PO SCH (08:22)
[2022-02-21] MEDS: DULoxetine 60 MG CAP PO SCH (08:32)
[2022-02-21] MEDS: Polyethylene Glycol 3350 17 GM Packet PO SCH (09:00)
[2022-02-21] MEDS: Fioricet 325/50/40 mg Tablet PO PRN (13:10)
[2022-02-21 14:44] LABS: Anisocytosis MODERATE=16-30 cells (100X) (0-5/hpf); Band 7 % (5-11); Hypochromia SLIGHT = 6-15 cells (100X) (0-5/hpf); Lymphocytes 10 % (21-51); MDiff Complete? YES; Macrocytosis SLIGHT = 6-15 cells (100X) (0-5/hpf); Mean Corpuscular HGB CONC 31.4 g/dL (32.0-36.0); Mean Corpuscular Hemoglobin 32.3 pg (27.0-31.0); Mean Platelet Volume 7.8 fL (7.4-10.4); Metamyelocyte 1 % (0-0); Monocytes 3 % (0-10); Myelocyte 8 % (0-0); Neutrophil 67 % (42-75); Nucleated RBC 2 % (0); Platelet Clumps SLIGHT; Platelet Count 345 thou/uL (130-400); Platelet Morphology Comment Appears Adequate; Polychromasia SLIGHT = 2-3 cells (100X) (0-2/hpf); RBC Distribution Width 24.2 % (11.5-14.5); Reactive Lymphocytes 2 % (0-10); Red Blood Cell (RBC) Count 2.49 mill/uL (4.20-5.40); Target Cells MODERATE= 6-15 cells (100X) (0-1/hpf); White Blood Cell (WBC) Count 8.3 thou/uL (4.8-10.8)
[2022-02-21] MEDS: MULTIVITAMINS IV SCH (14:58)
[2022-02-21] MEDS: SODIUM CHLORIDE IV SCH (14:58)
[2022-02-21] MEDS: [UNRECOGNIZED DRUG - OTHER] IV SCH (14:58)
[2022-02-21] MEDS: TRACE ELEMENT IV SCH (14:58)
[2022-02-21 15:19] LABS: Albumin 2.4 g/dL (3.4-4.8)
[2022-02-21 15:20] LABS: Calcium 8.4 mg/dL (7.8-10.44); Chloride 105 mmol/L (98-107); Potassium 4.6 mmol/L (3.5-5.1); Sodium 131 mmol/L (136-145)
[2022-02-21 15:21] LABS: Globulin 3.2 g/dL (2.4-3.5); Glucose 258 mg/dL (83-110); Protein, Total 5.6 g/dL (5.8-8.1)
[2022-02-21 15:23] LABS: Anion Gap 11 mmol/L (10-20); Bilirubin, Total 2.3 mg/dL (0.2-1.2); Carbon Dioxide 20 mmol/L (23-31)
[2022-02-21 15:24] LABS: Alkaline Phosphatase 315 U/L (40-110); Calc. Creatinine Clearance 37 mL/min (70-130); Phosphorus 2.7 mg/dL (2.3-4.7)
[2022-02-21 15:25] LABS: BUN (Urea Nitrogen) 24 mg/dL (9.8-20.1); Estimated GFR 90
[2022-02-21 15:26] LABS: AST (SGOT) 105 U/L (5-34)
[2022-02-21 15:27] LABS: ALT (SGPT) 68 U/L (8-55); Magnesium 1.8 mg/dL (1.6-2.6)
[2022-02-21] MEDS ORDERED: Fioricet 325/50/40 mg Tablet PO SCH ×2 (15:30→15:36)
[2022-02-21] MEDS: traZODone HCl 50 MG TAB PO SCH (20:50)
[2022-02-21] MEDS ORDERED: Magnesium 2 GM/50 ML(in water) 2 GM in Premix Bag 1 BAG IVPB SCH (23:59)
[2022-02-22] MEDS: Levothyroxine 175 MCG TAB PO SCH (05:48)
[2022-02-22 06:27] LABS: ALT (SGPT) 66 U/L (8-55); AST (SGOT) 92 U/L (5-34); Albumin 2.3 g/dL (3.4-4.8); Alkaline Phosphatase 297 U/L (40-110); Anion Gap 12 mmol/L (10-20); BUN (Urea Nitrogen) 22 mg/dL (9.8-20.1); Bilirubin, Total 2.1 mg/dL (0.2-1.2); Calc. Creatinine Clearance 40 mL/min (70-130); Calcium 8.4 mg/dL (7.8-10.44); Carbon Dioxide 21 mmol/L (23-31); Chloride 104 mmol/L (98-107); Estimated GFR 92; Globulin 3.3 g/dL (2.4-3.5); Glucose 174 mg/dL (83-110); Potassium 4.5 mmol/L (3.5-5.1); Protein, Total 5.6 g/dL (5.8-8.1); Sodium 132 mmol/L (136-145)
[2022-02-22 07:05] LABS: Phosphorus 3.4 mg/dL (2.3-4.7)
[2022-02-22] MEDS: Polyethylene Glycol 3350 17 GM Packet PO SCH (08:19)
[2022-02-22] MEDS: Topiramate 100 MG TAB PO SCH (08:19)
[2022-02-22] MEDS: Cholecalciferol 1,000 UNITS (25 MCG) TAB PO SCH (08:20)
[2022-02-22] MEDS: DULoxetine 60 MG CAP PO SCH (08:20)
[2022-02-22] MEDS: Thiamine 100 MG TAB PO SCH (08:20)
[2022-02-22] MEDS: Pancrelipase DR 12,000 1 CAP PO SCH ×3 (08:20→16:06)
[2022-02-22] MEDS: Fioricet 325/50/40 mg Tablet PO PRN ×2 (09:24→16:06)
[2022-02-22] MEDS ORDERED: [UNRECOGNIZED DRUG - OTHER] IV SCH (14:00)
[2022-02-22] MEDS ORDERED: TRACE ELEMENT IV SCH (14:00)
[2022-02-22] MEDS ORDERED: SODIUM CHLORIDE IV SCH (14:00)
[2022-02-22] MEDS ORDERED: MULTIVITAMINS IV SCH (14:00)
[2022-02-22 20:37] VITALS: TEMP 98.4
[2022-02-22] MEDS: traZODone HCl 50 MG TAB PO SCH (21:13)
[2022-02-23] MEDS: Levothyroxine 175 MCG TAB PO SCH (05:10)
[2022-02-23 06:03] LABS: ALT (SGPT) 60 U/L (8-55); AST (SGOT) 84 U/L (5-34); Albumin 2.3 g/dL (3.4-4.8); Alkaline Phosphatase 317 U/L (40-110); Anion Gap 9 mmol/L (10-20); BUN (Urea Nitrogen) 19 mg/dL (9.8-20.1); Bilirubin, Total 1.9 mg/dL (0.2-1.2); Calc. Creatinine Clearance 45 mL/min (70-130); Calcium 8.4 mg/dL (7.8-10.44); Carbon Dioxide 25 mmol/L (23-31); Chloride 105 mmol/L (98-107); Estimated GFR 93; Globulin 3.3 g/dL (2.4-3.5); Glucose 101 mg/dL (83-110); Potassium 4.3 mmol/L (3.5-5.1); Protein, Total 5.6 g/dL (5.8-8.1); Sodium 135 mmol/L (136-145)
[2022-02-23 07:43] VITALS: BP 115/67
[2022-02-23] MEDS: Pancrelipase DR 12,000 1 CAP PO SCH ×2 (08:32→13:01)
[2022-02-23] MEDS: DULoxetine 60 MG CAP PO SCH (08:32)
[2022-02-23] MEDS: Cholecalciferol 1,000 UNITS (25 MCG) TAB PO SCH (08:32)
[2022-02-23] MEDS: Thiamine 100 MG TAB PO SCH (08:32)
[2022-02-23] MEDS: Topiramate 100 MG TAB PO SCH (08:32)
[2022-02-23] MEDS: Polyethylene Glycol 3350 17 GM Packet PO SCH (08:33)
[2022-02-23] MEDS: Fioricet 325/50/40 mg Tablet PO PRN (13:09)
[2022-02-23] MEDS ORDERED: TRACE ELEMENT IV SCH (14:00)
[2022-02-23] MEDS ORDERED: MULTIVITAMINS IV SCH (14:00)
[2022-02-23] MEDS ORDERED: SODIUM CHLORIDE IV SCH (14:00)
[2022-02-23] MEDS ORDERED: [UNRECOGNIZED DRUG - OTHER] IV SCH (14:00)
== END 2022-02-23 15:18 | disposition home or self-care (01) | DRG 391 ==
LOC: ERS 16:46 → T4-A 18:16
PROVIDERS: ADMIT Family Medicine; ATTEND Family Medicine
PROC: 02HV33Z Insertion of Infusion Device into Superior Vena Cava, Percutaneous Approach (ICD-10-PCS; principal; 2022-02-16)
PROC: 3E0436Z Introduction of Nutritional Substance into Central Vein, Percutaneous Approach (ICD-10-PCS; 2022-02-16)
PROC: B548ZZA Ultrasonography of Superior Vena Cava, Guidance (ICD-10-PCS; 2022-02-16)
DX: K91.2 Postsurgical malabsorption, not elsewhere classified (principal); E43 Unspecified severe protein-calorie malnutrition; R64 Cachexia; K86.1 Other chronic pancreatitis; Z68.1 Body mass index [BMI] 19.9 or less, adult; K86.89 Other specified diseases of pancreas; Z20.822 Contact with and (suspected) exposure to COVID-19; F32.A Depression, unspecified; E03.9 Hypothyroidism, unspecified; Y83.8 Other surgical procedures as the cause of abnormal reaction of the patient, or of later complication, without mention of misadventure at the time of the procedure; Z96.643 Presence of artificial hip joint, bilateral; D64.9 Anemia, unspecified; R74.01 Elevation of levels of liver transaminase levels; I10 Essential (primary) hypertension; G89.29 Other chronic pain; G47.00 Insomnia, unspecified; R29.6 Repeated falls; G43.909 Migraine, unspecified, not intractable, without status migrainosus; K59.00 Constipation, unspecified; R25.2 Cramp and spasm; Z98.890 Other specified postprocedural states; Z88.5 Allergy status to narcotic agent; Z90.710 Acquired absence of both cervix and uterus; Z88.8 Allergy status to other drugs, medicaments and biological substances; Z79.890 Hormone replacement therapy; Z79.899 Other long term (current) drug therapy; Z79.51 Long term (current) use of inhaled steroids; Z88.6 Allergy status to analgesic agent; Z91.81 History of falling
CPT/HCPCS: 36415; 36430; 71045; 80048; 80053; 82947; 83735; 84100; 84134; 85025; 86850; 86900; 86901; 99284; A4217; C1751; J0171; J0690; J1642; J1815; J2405; J2704; J3420; J3475; J3480; J3490; J7050; J7060; J7120; P9016; Q0169; S0020; U0002; U0003; U0005

== ENCOUNTER 2022-03-01 02:08 | Observation (INO) | payer MEDICARE ==
[2022-03-01 03:34] LABS: Hemoglobin 8.7 g/dL (12.0-16.0); Mean Corpuscular HGB CONC 33.3 g/dL (32.0-36.0); Mean Corpuscular Hemoglobin 34.6 pg (27.0-31.0); Mean Platelet Volume 7.9 fL (7.4-10.4); Platelet Count 273 thou/uL (130-400); Red Blood Cell (RBC) Count 2.51 mill/uL (4.20-5.40)
[2022-03-01 03:49] LABS: ALT (SGPT) 80 U/L (8-55); AST (SGOT) 118 U/L (5-34); Albumin 2.6 g/dL (3.4-4.8); Alkaline Phosphatase 377 U/L (40-110); Anion Gap 16 mmol/L (10-20); BUN (Urea Nitrogen) 35 mg/dL (9.8-20.1); Bilirubin, Total 3.4 mg/dL (0.2-1.2); CK (CPK) 10 U/L (29-168); Calc. Creatinine Clearance 0 mL/min (70-130); Carbon Dioxide 23 mmol/L (23-31); Chloride 103 mmol/L (98-107); Estimated GFR 84; Globulin 3.7 g/dL (2.4-3.5); Glucose 131 mg/dL (83-110); Magnesium 1.7 mg/dL (1.6-2.6); Potassium 3.8 mmol/L (3.5-5.1); Protein, Total 6.3 g/dL (5.8-8.1); Sodium 138 mmol/L (136-145)
[2022-03-01 03:54] LABS: Band 30 % (5-11); Hypochromia SLIGHT = 6-15 cells (100X) (0-5/hpf); Lymphocytes 7 % (21-51); MDiff Complete? YES; Metamyelocyte 1 % (0-0); Neutrophil 62 % (42-75); Platelet Morphology Comment Appears Adequate
[2022-03-01] MEDS ORDERED: Promethazine 25 MG TAB PO PRN (05:33)
[2022-03-01] MEDS ORDERED: Levothyroxine 175 MCG TAB PO SCH (06:00)
[2022-03-01 07:03] LABS: Lactic Acid 2.4 mmol/L (0.5-2.2)
[2022-03-01 07:49] VITALS: BMI 12.6
[2022-03-01] MEDS ORDERED: Iopamidol-370 76% 500 ML 1 ML ONE (08:59)
[2022-03-01] MEDS: Topiramate 100 MG TAB PO SCH (13:01)
[2022-03-01] MEDS: Enoxaparin Sodium 30 MG/0.3 ML SYRINGE SC SCH (13:01)
[2022-03-01] MEDS: Cholecalciferol 1,000 UNITS (25 MCG) TAB PO SCH (13:01)
[2022-03-01] MEDS: Thiamine 100 MG TAB PO SCH (13:01)
[2022-03-01] MEDS: Pancrelipase DR 12,000 1 CAP PO SCH ×3 (13:01→17:54)
[2022-03-01] MEDS: DULoxetine 60 MG CAP PO SCH (13:01)
[2022-03-01] MEDS ORDERED: traZODone HCl 50 MG TAB PO SCH (21:00)
[2022-03-01] MEDS: Ibuprofen 200 MG TAB PO PRN (23:51)
[2022-03-02 04:53] LABS: ALT (SGPT) 51 U/L (8-55); AST (SGOT) 57 U/L (5-34); Albumin 2.3 g/dL (3.4-4.8); Alkaline Phosphatase 180 U/L (40-110); Anion Gap 15 mmol/L (10-20); BUN (Urea Nitrogen) 32 mg/dL (9.8-20.1); Calc. Creatinine Clearance 34 mL/min (70-130); Calcium 9.2 mg/dL (7.8-10.44); Carbon Dioxide 22 mmol/L (23-31); Chloride 105 mmol/L (98-107); Estimated GFR 80; Globulin 3.3 g/dL (2.4-3.5); Glucose 133 mg/dL (83-110); Magnesium 1.9 mg/dL (1.6-2.6); Potassium 3.8 mmol/L (3.5-5.1); Protein, Total 5.6 g/dL (5.8-8.1); Sodium 138 mmol/L (136-145)
[2022-03-02 05:01] LABS: Anisocytosis SLIGHT = 6-15 cells (100X) (0-5/hpf); Band 30 % (5-11); Eosinophils 2 % (0-10); Hemoglobin 7.1 g/dL (12.0-16.0); Large Platelets SLIGHT; Lymphocytes 4 % (21-51); MDiff Complete? YES; Macrocytosis MODERATE=16-30 cells (100X) (0-5/hpf); Mean Corpuscular HGB CONC 32.7 g/dL (32.0-36.0); Mean Corpuscular Hemoglobin 33.9 pg (27.0-31.0); Mean Platelet Volume 7.5 fL (7.4-10.4); Metamyelocyte 1 % (0-0); Monocytes 2 % (0-10); Neutrophil 61 % (42-75); Ovalocytes SLIGHT = 2-5 cells (100X) (0-1/hpf); Platelet Count 285 thou/uL (130-400); Platelet Morphology Comment Appears Adequate; RBC Distribution Width 24.4 % (11.5-14.5); White Blood Cell (WBC) Count 14.6 thou/uL (4.8-10.8)
[2022-03-02] MEDS: Ibuprofen 200 MG TAB PO PRN (05:38)
[2022-03-02] MEDS ORDERED: Levothyroxine Sodium 100 MCG TAB PO SCH (06:00)
[2022-03-02] MEDS ORDERED: Levothyroxine Sodium 88 MCG TAB PO SCH (06:00)
[2022-03-02] MEDS: Pancrelipase DR 12,000 1 CAP PO SCH ×3 (09:18→16:24)
[2022-03-02] MEDS: Enoxaparin Sodium 30 MG/0.3 ML SYRINGE SC SCH (09:18)
[2022-03-02] MEDS: Thiamine 100 MG TAB PO SCH (09:18)
[2022-03-02] MEDS: DULoxetine 60 MG CAP PO SCH (09:18)
[2022-03-02] MEDS: Topiramate 100 MG TAB PO SCH (09:32)
[2022-03-02] MEDS: Cholecalciferol 1,000 UNITS (25 MCG) TAB PO SCH (09:32)
[2022-03-02 11:34] LABS: Hemoglobin 7.2 g/dL (12.0-16.0); Mean Corpuscular Hemoglobin 34.2 pg (27.0-31.0); Mean Platelet Volume 7.5 fL (7.4-10.4); Platelet Count 277 thou/uL (130-400); RBC Distribution Width 24.2 % (11.5-14.5); White Blood Cell (WBC) Count 16.4 thou/uL (4.8-10.8)
[2022-03-02] MEDS ORDERED: Ibuprofen 200 MG TAB PO PRN (12:40)
[2022-03-02 16:18] VITALS: BP 98/53; TEMP 99.1
[2022-03-02 17:55] LABS: Bilirubin 1+ (Negative); Blood, Urine 2+ (Negative); Clarity Extra Turbid (Clear); Glucose, Urine (Dipstick) Normal (Negative); Ketone, Urine Negative (Negative); Leukocyte 500 Leu/uL (Negative); Nitrite 1+ (Negative); Protein, Urine (Dipstick) 50 mg/dL (Neg-Trace); Urobilinogen 6 mg/dL (Less than 2)
== END 2022-03-02 18:55 | disposition home health service (06) ==
LOC: ERS 02:08 → 2NO 04:36
PROVIDERS: ADMIT Student in an Organized Health Care Education/Training Program; ATTEND Student in an Organized Health Care Education/Training Program
DX: J96.01 Acute respiratory failure with hypoxia (principal); R00.0 Tachycardia, unspecified; R74.01 Elevation of levels of liver transaminase levels; E03.9 Hypothyroidism, unspecified; E80.6 Other disorders of bilirubin metabolism; K86.89 Other specified diseases of pancreas; D64.9 Anemia, unspecified; D72.825 Bandemia; M54.50 Low back pain, unspecified; R51.9 Headache, unspecified; E43 Unspecified severe protein-calorie malnutrition; Z68.1 Body mass index [BMI] 19.9 or less, adult; Z66 Do not resuscitate; Z79.890 Hormone replacement therapy; Z79.899 Other long term (current) drug therapy; Z88.5 Allergy status to narcotic agent; Z88.6 Allergy status to analgesic agent; Z88.8 Allergy status to other drugs, medicaments and biological substances; Z90.411 Acquired partial absence of pancreas; Z20.822 Contact with and (suspected) exposure to COVID-19
CPT/HCPCS: 71045; 71275; 80053; 81003; 82550; 83605; 83735 ×2; 84100; 84145; 84439; 84484; 85025; 85027; 85379; 87077; 87086; 87186; 93005; 96372 ×2; G0378 ×3; U0003; U0005; 36415; 84443; J1650; Q9967

== ENCOUNTER 2022-03-05 11:10 | Inpatient (IN) | payer MEDICARE ==
[~2022-03-05 11:10] MED LIST: Iopamidol-370 76% 500 ML 1 ML ONE
[2022-03-05] MEDS ORDERED: Cefepime 2 GM VIAL ONE (11:52)
[2022-03-05] MEDS ORDERED: Vancomycin 1 GM/200 ML BAG ONE (11:52)
[2022-03-05 12:12] LABS: Hemoglobin 7.7 g/dL (12.0-16.0); Mean Corpuscular HGB CONC 31.7 g/dL (32.0-36.0); Mean Platelet Volume 9.5 fL (7.4-10.4); Platelet Count 240 thou/uL (130-400); RBC Distribution Width 24.6 % (11.5-14.5); Red Blood Cell (RBC) Count 2.33 mill/uL (4.20-5.40); White Blood Cell (WBC) Count 34.7 thou/uL (4.8-10.8)
[2022-03-05 12:18] LABS: INR-International Normal Ratio 0.9; PTT 36.9 sec (22.9-36.1); Prothrombin Time 12.5 sec (12.0-14.7)
[2022-03-05 12:23] LABS: ALT (SGPT) 39 U/L (8-55); AST (SGOT) 47 U/L (5-34); Albumin 2.5 g/dL (3.4-4.8); Alkaline Phosphatase 207 U/L (40-110); Anion Gap 12 mmol/L (10-20); BUN (Urea Nitrogen) 25 mg/dL (9.8-20.1); Bilirubin, Total 3.8 mg/dL (0.2-1.2); Calc. Creatinine Clearance 0 mL/min (70-130); Calcium 9.5 mg/dL (7.8-10.44); Carbon Dioxide 26 mmol/L (23-31); Chloride 100 mmol/L (98-107); Estimated GFR 91; Globulin 4.1 g/dL (2.4-3.5); Glucose 237 mg/dL (83-110); Potassium 4.1 mmol/L (3.5-5.1); Protein, Total 6.6 g/dL (5.8-8.1); Sodium 134 mmol/L (136-145)
[2022-03-05 12:45] LABS: Band 57 % (5-11); Lymphocytes 3 % (21-51); MDiff Complete? YES; Metamyelocyte 1 % (0-0); Monocytes 3 % (0-10); Myelocyte 5 % (0-0); Neutrophil 29 % (42-75); Nucleated RBC 1 % (0); Platelet Morphology Comment Appears Adequate; Polychromasia SLIGHT = 2-3 cells (100X) (0-2/hpf); Toxic Granulation SLIGHT; Vacuoles SLIGHT
[2022-03-05 14:25] LABS: Bacteria/HPF 4+ HPF (None Seen); Bilirubin 1+ (Negative); Blood, Urine 3+ (Negative); Clarity Turbid (Clear); Glucose, Urine (Dipstick) Normal (Negative); Ketone, Urine Negative (Negative); Leukocyte 25 Leu/uL (Negative); Nitrite 1+ (Negative); Protein, Urine (Dipstick) 50 mg/dL (Neg-Trace); RBC/HPF Greater than 50 HPF (0-3); Specific Gravity, Urine 1.017 (1.002-1.036); Squamous Epithelial 0-3 HPF (0-3); pH, Urine 6.5 (5.0-9.0)
[2022-03-05] MEDS ORDERED: Acetaminophen 325 MG TAB PO PRN (14:40)
[2022-03-05] MEDS ORDERED: Ondansetron ODT 4 MG TAB PO PRN (14:40)
[2022-03-05 14:46] LABS: SARS-CoV-2 NAA Rapid Test Not Detected (NotDetected)
[2022-03-05 15:51] VITALS: BMI 14.6
[2022-03-05] MEDS ORDERED: Promethazine 25 MG TAB PO PRN (17:04)
[2022-03-05] MEDS ORDERED: Micafungin 100 MG in Sodium Chloride 0.9% 100 ML IVPB SCH (18:00)
[2022-03-05] MEDS ORDERED: Piperacillin/Tazobactam 3.375 GM in Sodium Chloride 0.9% 100 ML IVPB SCH ×2 (18:00→19:30)
[2022-03-05 19:48] LABS: Actual Bicarbonate (HCO3a) 26.7 mEq/L (22-28); Base Excess (BEa) -1.1 mEq/L (-2.0 to +3.0); Calcium, Ionized (arterial) 1.25 mmol/L (1.12-1.30); Carboxyhemoglobin (COHb) 1.1 gm% (0.0-3.0); Hemoglobin (Hb) 7.7 g/dL (12.0-16.0); O2 Tension (PaO2), arterial 298.8 mmHg (> 70.0); Potassium - ABG Lab 4.09 mmol/L (3.70-5.30)
[2022-03-05 19:53] LABS: pH, Arterial 7.23 (7.35-7.45)
[2022-03-05 19:54] LABS: CO2 Tension 65.4 mmHg (35.0-45.0)
[2022-03-05] MEDS ORDERED: Lorazepam (BATCHED) 2 MG/ML SYR SLOW IVP PRN (20:45)
[2022-03-05] MEDS ORDERED: Vancomycin 1.5 GRAM/300 ML BAG 1.5 GM in Premix Bag 1 BAG IVPB SCH (21:00)
[2022-03-05] MEDS ORDERED: traZODone HCl 50 MG TAB PO SCH (21:00)
[2022-03-05] MEDS: Fentanyl 100 MCG/2 ML VIAL SLOW IVP PRN ×2 (21:01→23:04)
[2022-03-05 22:11] LABS: HIV (1/2) Antibody/Antigen Non-Reactive (NonReactive); HIV 1/2 INDEX 0.28 S/CO (<1.00)
[2022-03-06] MEDS: Fentanyl 100 MCG/2 ML VIAL SLOW IVP PRN ×6 (01:01→10:53)
[2022-03-06] MEDS: Piperacillin/Tazobactam 3.375 GM in Sodium Chloride 0.9% 100 ML IVPB SCH ×2 (01:02→10:05)
[2022-03-06] MEDS ORDERED: Levothyroxine Sodium 100 MCG TAB PO SCH (06:00)
[2022-03-06] MEDS ORDERED: Levothyroxine Sodium 88 MCG TAB PO SCH (06:00)
[2022-03-06] MEDS ORDERED: Midazolam HCl 2 mg/2 ml Vial SLOW IVP PRN ×2 (07:04→13:32)
[2022-03-06 07:43] VITALS: BP 128/61
[2022-03-06] MEDS ORDERED: Topiramate 100 MG TAB PO SCH (09:00)
[2022-03-06] MEDS ORDERED: Thiamine 100 MG TAB PO SCH (09:00)
[2022-03-06] MEDS ORDERED: Enoxaparin Sodium 40 MG/0.4 ML SYRINGE SC SCH (09:00)
[2022-03-06] MEDS: Pancrelipase DR 12,000 1 CAP PO SCH ×2 (09:27→11:01)
[2022-03-06] MEDS ORDERED: Vancomycin HCl 750 MG in Sodium Chloride 0.9% 250 ML 250 ML IVPB SCH (12:00)
[2022-03-06] MEDS ORDERED: Fentanyl 100 MCG/2 ML VIAL SLOW IVP PRN (13:34)
[2022-03-06] MEDS ORDERED: Ondansetron PF 4 MG/2 ML Vial IVP PRN (13:34)
[2022-03-06 13:43] VITALS: TEMP 97.7
[2022-03-06] MEDS ORDERED: Scopolamine 1.5 mg/72 hour Patch TOP SCH (13:45)
[2022-03-06] MEDS ORDERED: Fentanyl 100 MCG/2 ML VIAL SLOW IVP SCH (14:00)
[2022-03-06] MEDS ORDERED: Midazolam HCl 2 mg/2 ml Vial SLOW IVP SCH (17:00)
== END 2022-03-06 13:46 | disposition hospice, inpatient (51) | DRG 871 ==
LOC: ERS 11:10 → 2NO 14:05
PROVIDERS: ADMIT Student in an Organized Health Care Education/Training Program; ATTEND Student in an Organized Health Care Education/Training Program
DX: A41.81 Sepsis due to Enterococcus (principal); E43 Unspecified severe protein-calorie malnutrition; J18.9 Pneumonia, unspecified organism; J96.01 Acute respiratory failure with hypoxia; J96.02 Acute respiratory failure with hypercapnia; K90.9 Intestinal malabsorption, unspecified; Z68.1 Body mass index [BMI] 19.9 or less, adult; E87.2 Acidosis; N39.0 Urinary tract infection, site not specified; Z51.5 Encounter for palliative care; Z66 Do not resuscitate; Z20.822 Contact with and (suspected) exposure to COVID-19; E03.9 Hypothyroidism, unspecified; D64.9 Anemia, unspecified; G43.909 Migraine, unspecified, not intractable, without status migrainosus; K59.00 Constipation, unspecified; K86.89 Other specified diseases of pancreas; Z85.07 Personal history of malignant neoplasm of pancreas; Z88.5 Allergy status to narcotic agent; Z88.8 Allergy status to other drugs, medicaments and biological substances; Z79.890 Hormone replacement therapy; Z79.899 Other long term (current) drug therapy; Z90.710 Acquired absence of both cervix and uterus; Z98.890 Other specified postprocedural states
CPT/HCPCS: 36415; 71045; 71275; 80053; 81003; 81015; 82805; 83605; 84145; 84484; 85025; 85610; 85730; 87040; 87077; 87086; 87149; 87186; 87389; 93005; 94760; 96365; 96366; 96367; J0692; J1650; J1956; J2248; J2543; J3010; J3370; J3490; Q9967

== ENCOUNTER 2022-03-06 14:35 | Inpatient (IN) | payer OTHER ==
[2022-03-06 14:55] VITALS: BMI 14.6
[2022-03-06] MEDS ORDERED: Fentanyl 100 MCG/2 ML VIAL SLOW IVP PRN (15:36)
[2022-03-06] MEDS ORDERED: Ondansetron PF 4 MG/2 ML Vial IVP PRN (15:41)
[2022-03-06] MEDS: Fentanyl 100 MCG/2 ML VIAL SLOW IVP SCH ×4 (15:51→22:47)
[2022-03-06] MEDS ORDERED: Midazolam HCl 2 mg/2 ml Vial IVP PRN (15:59)
[2022-03-06] MEDS ORDERED: Scopolamine 1.5 mg/72 hour Patch TOP SCH (16:15)
[2022-03-06] MEDS: Midazolam HCl 2 mg/2 ml Vial IVP SCH ×2 (17:09→21:45)
[2022-03-07] MEDS: Fentanyl 100 MCG/2 ML VIAL SLOW IVP SCH ×12 (00:31→22:50)
[2022-03-07] MEDS: Midazolam HCl 2 mg/2 ml Vial IVP SCH ×7 (00:31→23:07)
[2022-03-07] MEDS ORDERED: Fentanyl 100 MCG/2 ML VIAL SLOW IVP SCH (10:30)
[2022-03-08] MEDS: Fentanyl 100 MCG/2 ML VIAL SLOW IVP SCH ×6 (00:41→12:06)
[2022-03-08 01:34] VITALS: BP 81/39; TEMP 96.2
[2022-03-08] MEDS: Midazolam HCl 2 mg/2 ml Vial IVP SCH ×2 (03:17→07:44)
== END 2022-03-08 10:12 | disposition expired | DRG 951 ==
LOC: 2NO 14:35
PROVIDERS: ADMIT Family Medicine; ATTEND Family Medicine
DX: Z51.5 Encounter for palliative care (principal); E43 Unspecified severe protein-calorie malnutrition; A41.9 Sepsis, unspecified organism; J96.01 Acute respiratory failure with hypoxia; J18.9 Pneumonia, unspecified organism; Z68.1 Body mass index [BMI] 19.9 or less, adult; K90.9 Intestinal malabsorption, unspecified; N39.0 Urinary tract infection, site not specified; Z66 Do not resuscitate; I10 Essential (primary) hypertension; K59.00 Constipation, unspecified; E03.9 Hypothyroidism, unspecified
CPT/HCPCS: 94760; J2250; J3010